=== PATIENT | female | born 1980 | race Caucasian/White ===

== ENCOUNTER 2017-05-05 23:28 | Emergency (ER) | payer SELFPAY ==
[~2017-05-05] VITALS: Ht 154.9 cm; Wt 49.9 kg
[~2017-05-05 23:28] MED LIST: LEXAPRO10 MG ORAL; LYRICA50 MG ORAL; PHENOBARBITAL60 MG ORAL; ZONEGRAN100 MG ORAL
[2017-05-05 23:38] VITALS: BP 122/87
--- NOTE | 2017-05-06 00:02 | Emergency Room Report ---
History of Present Illness General Chief Complaint: Seizure Source: Patient Present Illness HPI 36-year-old female history of epilepsy on phenobarbital presenting with seizure. Patient [place] patient stated that she had a seizure and fell to her left side. Per patient, container washer machine told her she did not hit her head. Seizure lasted less than 5 minutes. Was generalized tonic-clonic. There was no tongue braiding or urinary or fecal incontinence. Patient states that she has been compliant with her medication. Patient states that she always does not feel well. Denies any fever chills nausea vomiting diarrhea or abdominal pain. Patient states that there is no chance she could be . Patient states that she sees a neurologist at [facility] her next appointment is this week. No head trauma Allergies: Coded Allergies: CARBAMAZEPINE (Verified Allergy, Unknown, 06/04/15) CIPROFLOXACIN (Verified Allergy, Unknown, 06/04/15) DIVALPROEX SODIUM (Unverified Allergy, Unknown, 05/05/17) PHENYTOIN (Unverified Allergy, Unknown, 05/05/17) VALPROIC ACID (Verified Allergy, Unknown, 06/04/15) Patient History Last Menstrual Period: 05/05/17 Now: No : 0 Para: 0 Nursing Documentation-PMH Hx Cardiac Problems: No - Vertigo Hx Cancer: No Hx Gastrointestinal Problems: No History Of Psychiatric Problem: Yes - Depression Hx Neurological Problems: Yes - seizures Hx Seizures: Yes Review of Systems All Other Systems: negative except mentioned in HPI Physical Exam Vital Signs Date Time Temp Pulse Resp B/P (MAP) Pulse Ox O2 Delivery O2 Flow Rate FiO2 05/05/17 23:15 98.1 80 16 142/84 98 Room Air Sp02 EP Interpretation: reviewed, normal General Appearance: normal inspection, well appearing, no apparent distress, alert, GCS 15, non-toxic Head: normocephalic, atraumatic Eyes: bilateral eye normal inspection, bilateral eye PERRL, bilateral eye EOMI ENT: normal ENT inspection, normal pharynx, normal voice, moist mucus membranes Neck: normal inspection, full range of motion, supple Respiratory: normal inspection, lungs clear, normal breath sounds, no respiratory distress, no retraction, no wheezing, speaking full sentences, chest symmetrical Cardiovascular #1: normal inspection, regular rate, rhythm, no edema, normal capillary refill Cardiovascular #2: 2+ radial (R), 2+ radial (L) Gastrointestinal: normal inspection, non tender, soft, non-distended, no guarding Musculoskeletal: normal inspection, back normal, normal range of motion, non- tender Neurologic: normal inspection, alert, oriented x3, responsive, motor strength/ tone normal, sensory intact, normal gait, speech normal Psychiatric: normal inspection, judgement/insight normal, memory normal Skin: normal inspection, normal color, no rash, warm/dry, well hydrated, normal turgor Medical Decision Making Diagnostic Impression: Primary Impression: Seizure disorder ER Course 36-year-old female known seizures presenting with seizure Differential diagnosis Primary seizure, no history of trauma Rule out electrolyte disturbance Plan Routine labs, phenobarbital level, EKG ER course Patient was getting extremely anxious, 2 mg Ativan given. Patient has remained alert awake oriented x3. No further episodes of seizures. Discussed with patient's primary care doctor, Dr. 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 Does not believe patient needs to stay in the emergency room. Patient has good followup with neurologist at [facility]. Disposition The patient is stable for discharge and will be discharged to home. Strict return precautions given to patient such as headache fever chills nausea vomiting or further seizures. Otherwise patient will followup with her neurologist within 2 days. Laboratory Tests Test 05/05/17 23:32 White Blood Count 7.2 K/UL (4.8-10.8) Red Blood Count 4.32 M/UL (4.20-5.40) Hemoglobin 14.6 G/DL (12.0-16.0) Hematocrit 40.1 % (37.0-47.0) Mean Corpuscular Volume 93 FL (80-99) Mean Corpuscular Hemoglobin 33.9 PG (27.0-31.0) H Mean Corpuscular Hemoglobin Concent 36.5 G/DL (32.0-36.0) H Red Cell Distribution Width 10.9 % (11.6-14.8) L Platelet Count 328 K/UL (150-450) Mean Platelet Volume 6.9 FL (6.5-10.1) Neutrophils (%) (Auto) 77.6 % (45.0-75.0) H Lymphocytes (%) (Auto) 12.6 % (20.0-45.0) L Monocytes (%) (Auto) 7.9 % (1.0-10.0) Eosinophils (%) (Auto) 0.5 % (0.0-3.0) Basophils (%) (Auto) 1.4 % (0.0-2.0) Sodium Level 140 mEQ/L (135-145) Potassium Level 3.2 mEQ/L (3.4-4.9) L Chloride Level 103 mEQ/L (98-107) Carbon Dioxide Level 22 mEQ/L (20-30) Anion Gap 15 (5-15) Blood Urea Nitrogen 13 mg/dL (7-23) Creatinine 0.6 mg/dL (0.5-0.9) Estimate Glomerular Filtration Rate > 60 mL/min (>60) Glucose Level 115 mg/dL (74-106) H Calcium Level 8.8 mg/dL (8.6-10.2) Total Bilirubin 0.2 mg/dL (0.0-1.2) Aspartate Amino Transferase (AST) 10 U/L (5-40) Alanine Aminotransferase (ALT) 9 U/L (3-33) Alkaline Phosphatase 52 U/L (35-104) Total Protein 6.8 g/dL (6.6-8.7) Albumin 4.5 g/dL (3.5-5.2) Globulin 2.3 g/dL Albumin/Globulin Ratio 1.9 (1.0-2.7) Phenobarbital Level 35.2 ug/mL (20.0-40.0) EKG Diagnostic Results Rate: normal Rhythm: NSR ST Segments: other - T wave flateening V5 V6 ASA given to the pt in ED: No Rhythm Strip Diag. Results EP Interpretation: yes Rate: 80 Rhythm: NSR, no PVC's, no ectopy Last Vital Signs Date Time Temp Pulse Resp B/P (MAP) Pulse Ox O2 Delivery O2 Flow Rate FiO2 05/05/17 23:42 95 15 Room Air 05/05/17 23:38 98.1 122/87 98 Shiela Lopez M.D. May 06, 2017 00:02
[2017-05-06] MEDS ORDERED: LORazepam Inj 2mg/ml 1ml IV ONE ×2 (00:15)
[2017-05-06 00:18] LABS: BASOPHILS % (AUTO) 1.4 % (0.0-2.0); EOSINOPHILS % (AUTO) 0.5 % (0.0-3.0); LYMPHOCYTES % (AUTO) 12.6 % (20.0-45.0); MEAN CORPUSCULAR HEMOGLOBIN 33.9 PG (27.0-31.0); MEAN CORPUSCULAR HGB CONC 36.5 G/DL (32.0-36.0); MEAN CORPUSCULAR VOLUME 93 FL (80-99); MEAN PLATELET VOLUME 6.9 FL (6.5-10.1); MONOCYTES % (AUTO) 7.9 % (1.0-10.0); NEUTROPHILS % (AUTO) 77.6 % (45.0-75.0); PLATELET COUNT 328 K/UL (150-450); RED BLOOD COUNT 4.32 M/UL (4.20-5.40); RED CELL DISTRIBUTION WIDTH 10.9 % (11.6-14.8); WHITE BLOOD COUNT 7.2 K/UL (4.8-10.8)
[2017-05-06 00:44] LABS: ALANINE AMINOTRANSFERASE 9 U/L (3-33); ALBUMIN/GLOBULIN RATIO 1.9 (1.0-2.7); ANION GAP 15 (5-15); ASPARTATE AMINO TRANSFERASE 10 U/L (5-40); CALCIUM 8.8 mg/dL (8.6-10.2); CARBON DIOXIDE 22 mEQ/L (20-30); CHLORIDE 103 mEQ/L (98-107); CREATININE 0.6 mg/dL (0.5-0.9); GLOMERULAR FILTRATION RATE > 60 mL/min (>60); HEMOLYSIS 10; POTASSIUM 3.2 mEQ/L (3.4-4.9); SODIUM 140 mEQ/L (135-145); TOTAL PROTEIN 6.8 g/dL (6.6-8.7)
[2017-05-06 01:19] VITALS: BP 128/88
== END 2017-05-06 01:20 | disposition home or self-care (01) ==
LOC: EDBD 23:28 → EMR 23:35
DX: G40.909 Epilepsy, unspecified, not intractable, without status epilepticus (principal); F32.9 Major depressive disorder, single episode, unspecified
CPT/HCPCS: 36415; 80053; 80184; 85025; 96374; 99284

== ENCOUNTER 2017-09-04 04:29 | Emergency (ER) | payer SELFPAY ==
[~2017-09-04] VITALS: Ht 152.4 cm; Wt 49.9 kg
[2017-09-04 05:09] LABS: BASOPHILS % (AUTO) 1.7 % (0.0-2.0); EOSINOPHILS % (AUTO) 1.8 % (0.0-3.0); HEMATOCRIT 39.6 % (37.0-47.0); HEMOGLOBIN 14.2 G/DL (12.0-16.0); LYMPHOCYTES % (AUTO) 21.7 % (20.0-45.0); MEAN CORPUSCULAR VOLUME 94 FL (80-99); MONOCYTES % (AUTO) 9.5 % (1.0-10.0); NEUTROPHILS % (AUTO) 65.3 % (45.0-75.0); PLATELET COUNT 278 K/UL (150-450); RED BLOOD COUNT 4.19 M/UL (4.20-5.40); RED CELL DISTRIBUTION WIDTH 11.4 % (11.6-14.8); WHITE BLOOD COUNT 6.9 K/UL (4.8-10.8)
--- NOTE | 2017-09-04 05:10 | Emergency Room Report ---
History of Present Illness General Chief Complaint: Seizure Source: Patient, Medical Record, Caregiver Present Illness HPI 37-year-old female, history of depression, seizures on phenobarbital, presenting with seizure. Patient was with her caregiver, caregiver noticed patient having a generalized tonic-clonic seizure for 1 minute, no tongue biting no bowel or bladder incontinence. Patient states that he she remembers having a seizure. Also states that she gets chronic migraines. Has otherwise been eating and drinking normally no fever no chills. She has a neurologist Dr. Loco from [facility] who she regularly follows up with. She has been compliant with her medications Allergies: Coded Allergies: CARBAMAZEPINE (Verified Allergy, Unknown, 06/04/15) CIPROFLOXACIN (Verified Allergy, Unknown, 06/04/15) DIVALPROEX SODIUM (Unverified Allergy, Unknown, 05/05/17) PHENYTOIN (Unverified Allergy, Unknown, 05/05/17) VALPROIC ACID (Verified Allergy, Unknown, 06/04/15) Patient History Past Medical History: see triage record Past Surgical History: none Pertinent Family History: none Last Menstrual Period: n/a Reviewed Nursing Documentation: PMH: Agreed, PSxH: Agreed Nursing Documentation-PMH Past Medical History: No History, Except For Hx Cardiac Problems: No - Vertigo Hx Cancer: No Hx Gastrointestinal Problems: No Hx Neurological Problems: Yes - seizures Hx Seizures: Yes Review of Systems All Other Systems: negative except mentioned in HPI Physical Exam Vital Signs Date Time Temp Pulse Resp B/P (MAP) Pulse Ox O2 Delivery O2 Flow Rate FiO2 09/04/17 04:28 97.5 60 16 107/71 99 Room Air Sp02 EP Interpretation: reviewed, normal General Appearance: other - young female, aox4, calm cooperative Head: normocephalic, atraumatic Eyes: bilateral eye normal inspection, bilateral eye PERRL, bilateral eye EOMI ENT: normal ENT inspection, normal pharynx, normal voice, moist mucus membranes Neck: normal inspection, full range of motion, supple Respiratory: normal inspection, lungs clear, normal breath sounds, no respiratory distress, no retraction, no wheezing, speaking full sentences, chest symmetrical Cardiovascular #1: normal inspection, regular rate, rhythm, normal capillary refill Cardiovascular #2: 2+ radial (R), 2+ radial (L) Gastrointestinal: normal inspection, non tender, soft, non-distended, no guarding Musculoskeletal: normal inspection, back normal, normal range of motion, non- tender Neurologic: normal inspection, alert, oriented x3, responsive, health safety and environment manager III-XII nml as tested, motor strength/tone normal, sensory intact, speech normal Psychiatric: normal inspection, judgement/insight normal, memory normal Skin: normal inspection, normal color, no rash, warm/dry, well hydrated, normal turgor Medical Decision Making Diagnostic Impression: Primary Impression: Seizure disorder ER Course 37-year-old female, history of pseudoseizures, seizures, depression with p/w seizure DDX: Primary seizure, triggered by infection UTI/PNA vs. dehydration vs. medication non compliance Electrolyte disturbance: hypoglycemia vs. hyponatremia vs. hypocalcemia vs. hypomagnesemia Cardiac: Arrythmia/acs Plan: BGM EKG, UCG Labs, seizure medication levels, tox labs No CT is necessary at this time, she is in a x4, neurologically and ER course: No further seizures in ED Has been stable during ED stay. AOx4, no neurological signs or symptoms d/w Dr Mendez patient's PMD. pt can fu with him this week labs unremarkable Disposition: Patient will be discharged to home. Patient instructed to be compliant with anti seizure medications Patient is to follow up with their primary care doctor in 5 days and neurologist within 1 week. Strict return precautions discussed such as severe headache, fever, chills, neck pain, prolonged or increased frequency of seizures. Patient verbalized understanding and agrees with plan. EKG Diagnostic Results EP Interpretation: Yes Rate: normal Rhythm: NSR ST Segments: No acute changes ASA given to patient: No Laboratory Tests Test 09/04/17 04:52 White Blood Count 6.9 K/UL (4.8-10.8) Red Blood Count 4.19 M/UL (4.20-5.40) L Hemoglobin 14.2 G/DL (12.0-16.0) Hematocrit 39.6 % (37.0-47.0) Mean Corpuscular Volume 94 FL (80-99) Mean Corpuscular Hemoglobin 34.0 PG (27.0-31.0) H Mean Corpuscular Hemoglobin Concent 36.0 G/DL (32.0-36.0) Red Cell Distribution Width 11.4 % (11.6-14.8) L Platelet Count 278 K/UL (150-450) Mean Platelet Volume 7.6 FL (6.5-10.1) Neutrophils (%) (Auto) 65.3 % (45.0-75.0) Lymphocytes (%) (Auto) 21.7 % (20.0-45.0) Monocytes (%) (Auto) 9.5 % (1.0-10.0) Eosinophils (%) (Auto) 1.8 % (0.0-3.0) Basophils (%) (Auto) 1.7 % (0.0-2.0) Sodium Level 137 MMOL/L (136-145) Potassium Level 4.0 MMOL/L (3.5-5.1) Chloride Level 104 MMOL/L (98-107) Carbon Dioxide Level 24 MMOL/L (21-32) Anion Gap 9 mmol/L (5-15) Blood Urea Nitrogen 12 mg/dL (7-18) Creatinine 0.5 MG/DL (0.55-1.30) L Estimate Glomerular Filtration Rate > 60 mL/min (>60) Glucose Level 91 MG/DL (74-106) Calcium Level 7.7 MG/DL (8.5-10.1) L Total Bilirubin 0.2 MG/DL (0.2-1.0) Aspartate Amino Transferase (AST) 25 U/L (15-37) Alanine Aminotransferase (ALT) 12 U/L (12-78) Alkaline Phosphatase 57 U/L (46-116) Troponin I 0.001 ng/mL (0.000-0.056) Total Protein 6.8 G/DL (6.4-8.2) Albumin 3.7 G/DL (3.4-5.0) Globulin 3.1 g/dL Albumin/Globulin Ratio 1.2 (1.0-2.7) Salicylates Level < 0.2 ug/mL (2.8-20) L Acetaminophen Level < 2 MCG/ML (10-30) L Phenytoin (Dilantin) Level < 0.4 ug/mL (10-20) L Phenobarbital Level 36.2 ug/mL (15-40) Serum Alcohol < 3 mg/dL Last Vital Signs Date Time Temp Pulse Resp B/P (MAP) Pulse Ox O2 Delivery O2 Flow Rate FiO2 09/04/17 05:05 66 16 Room Air 09/04/17 04:28 97.5 107/71 99 Disposition: HOME, SELF-CARE Condition: Improved Referrals: NOT CHOSEN IPA/,REFERRING (PCP) Shiela Lopez M.D. Sep 04, 2017 05:10
[2017-09-04 05:16] VITALS: BP 107/71
[2017-09-04 05:25] LABS: ANION GAP 9 mmol/L (5-15); BLOOD UREA NITROGEN 12 mg/dL (7-18); CALCIUM 7.7 MG/DL (8.5-10.1); CARBON DIOXIDE 24 MMOL/L (21-32); CHLORIDE 104 MMOL/L (98-107); CREATININE 0.5 MG/DL (0.55-1.30); SODIUM 137 MMOL/L (136-145)
[2017-09-04 05:27] LABS: ALANINE AMINOTRANSFERASE 12 U/L (12-78); ALBUMIN 3.7 G/DL (3.4-5.0); ALBUMIN/GLOBULIN RATIO 1.2 (1.0-2.7); ALKALINE PHOSPHATASE 57 U/L (46-116); ASPARTATE AMINO TRANSFERASE 25 U/L (15-37); BILIRUBIN,TOTAL 0.2 MG/DL (0.2-1.0)
[2017-09-04] MEDS ORDERED: LORazepam Inj 2mg/ml 1ml IV ONE (05:30)
[2017-09-04 06:25] VITALS: BP 106/66
[2017-09-04 06:27] VITALS: BP 106/66
--- NOTE | 2017-09-04 11:03 | Diagnostic Imaging Report ---
Indication: Dyspnea Comparison: None A single view chest radiograph was obtained. Findings: Cardiomediastinal appearance is within normal limits for age. Pulmonary vascularity is appropriate. The diaphragmatic contour is smooth and costophrenic angles are sharp. No pleural effusions are identified. The bones are unremarkable. Impression: No acute findings
--- NOTE | 2017-09-15 00:09 | Cardiology Report ---
APPROVED REPORT EKG Measurement Heart [id number] Normal sinus rhythm Rightward axis Abnormal ECG
== END 2017-09-04 06:28 | disposition home or self-care (01) ==
LOC: EDBD 04:29 → EMR 04:50
DX: G40.409 Other generalized epilepsy and epileptic syndromes, not intractable, without status epilepticus (principal); Z86.59 Personal history of other mental and behavioral disorders; Z79.899 Other long term (current) drug therapy; Z88.8 Allergy status to other drugs, medicaments and biological substances
CPT/HCPCS: 36415; 71010; 80053; 80184; 80185; 84484; 85025; 93005; 96374; 99284; G0480; 80329